=== PATIENT | female | born 2000 | race Caucasian/White ===

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

== ENCOUNTER 2022-12-01 18:09 | Emergency (ER) | payer OTHER ==
[~2022-12-01] VITALS: Ht 165.1 cm; Wt 56.7 kg
[~2022-12-01 18:09] MED LIST: ACET-10509 PO
[2022-12-01 18:33] VITALS: BP 120/70; PULSE 75; RESP 20; TEMP 98; O2SAT 99
[2022-12-01] MEDS ORDERED: KETOROLAC 15 MG/ML VIAL IM ONE (20:20)
[2022-12-01] MEDS ORDERED: ONDANSETRON 4 MG ODT PO ONE (20:20)
[2022-12-01 20:30] LABS: BASOPHILS % (AUTO) 0.3 % (0.0-2.0); EOSINOPHILS % (AUTO) 0.2 % (0.0-4.0); HEMATOCRIT 41.7 % (36-48); HEMOGLOBIN 14.2 g/dL (12.0-16.0); LYMPHOCYTES % (AUTO) 26.1 % (20.5-51.1); MEAN CORPUSCULAR HEMOGLOBIN 31 pg (27-31); MEAN CORPUSCULAR HGB CONC 34 g/dL (33-37); MEAN CORPUSCULAR VOLUME 92.4 fL (80-94); MONOCYTES # (AUTO) 0.5 K/uL (0.8-1.0); MONOCYTES % (AUTO) 7.1 % (1.7-9.3); NEUTROPHILS % (AUTO) 66.3 % (42.2-75.2); PLATELET COUNT (AUTO) 265 K/uL (140-450); RED BLOOD CELL COUNT(AUTO) 4.52 MIL/uL (4.20-5.40); RED CELL DISTRIBUTION WIDTH 12.4 % (11.6-13.7); WHITE BLOOD COUNT (AUTO) 7.5 K/uL (4.8-10.8)
[2022-12-01 20:44] LABS: ALBUMIN 4.3 g/dL (3.4-5.0); ANION GAP 13.1 (8-16); CREATININE 0.7 mg/dL (0.6-1.3); POTASSIUM 4.1 mmol/L (3.5-5.1)
[2022-12-01] MEDS ORDERED: IBUP-2213 PO (20:58)
--- NOTE | 2022-12-01 21:46 | NUR ---
Patient discharged with v/s stable. Written and verbal after care instructions given and explained. Patient verbalized understanding. Ambulatory with steady gait. All questions addressed prior to discharge. Advised to follow up with PMD.
== END 2022-12-01 21:46 | disposition home or self-care (01) ==
LOC: MED 18:09
DX: R07.89 Other chest pain (principal); R51.9 Headache, unspecified; R20.2 Paresthesia of skin; R53.1 Weakness; Z79.899 Other long term (current) drug therapy; Z79.1 Long term (current) use of non-steroidal anti-inflammatories (NSAID)
CPT/HCPCS: 36415; 71045; 80053; 81025; 82948; 85025; 93005; 96372; 99285; J1885; Q0162

== ENCOUNTER 2023-08-10 18:49 | Emergency (ER) | payer OTHER ==
[~2023-08-10] VITALS: Ht 165.1 cm; Wt 61.7 kg
[~2023-08-10 18:49] MED LIST changes: +IBUP-2213 PO
[2023-08-10 19:08] VITALS: BP 112/72; PULSE 82; RESP 18; TEMP 97.1; O2SAT 98
[2023-08-10] MEDS ORDERED: ACET-9882 PO (21:34)
[2023-08-10] MEDS ORDERED: IBUP-2213 PO (21:34)
[2023-08-10] MEDS: KETOROLAC 30 MG/ML VIAL IM ONE (21:52)
== END 2023-08-10 21:51 | disposition home or self-care (01) ==
LOC: MED 18:49
DX: S60.211A Contusion of right wrist, initial encounter (principal); S60.512A Abrasion of left hand, initial encounter; W22.01XA Walked into wall, initial encounter; Y93.89 Activity, other specified; Y92.89 Other specified places as the place of occurrence of the external cause; Y99.8 Other external cause status
CPT/HCPCS: 73110; 73130; 81025; 96372; 99284; J1885